=== PATIENT | male | born 1985 | race Caucasian/White ===

== ENCOUNTER → 2017-08-02 | Outpatient (CLI) | payer OTHER | LOC: FCPNEURO 21:00 | PROVIDERS: ATTEND Psychiatry & Neurology Sleep Medicine | DX: G47.33 Obstructive sleep apnea (adult) (pediatric) (principal); G47.31 Primary central sleep apnea ==

== ENCOUNTER 2019-03-24 22:03 | Emergency (ER) | payer OTHER ==
--- NOTE | 2019-03-24 22:22 | EDPHY ---
H & P Stated Complaint: syncope, + edibles prior Time Seen by Provider: 03/24/19 22:10 HPI/ROS: Chief Complaint: Near-syncope HPI: 34-year-old male had a near syncopal episode while attending at play this evening. Patient states that he became very lightheaded and slumped back. He did not completely lose consciousness. Does not have a history of similar episodes in the past. She has no chest pain or palpitations. No heart racing. No leg pain. No shortness of breath. Does not have a family history of sudden cardiac or coronary artery disease. Patient does admit to using some cannabis edibles earlier in the evening and thinks he may have taken a larger dose than he had intended. Currently is feeling mildly lightheaded. ROS: 10 systems were reviewed and were negative except those elements noted in the HPI. PMH: Denies Social History: No smoking, occasional alcohol, occasional cannabis Family History: No family history of coronary artery disease or sudden cardiac Physical Exam: Gen: Awake, Alert, mildly slowed response, appears under the influence of cannabis HEENT: Nose: no rhinorrhea Eyes: PERRLA, EOMI Mouth: Moist mucosa Neck: Supple, no JVD Chest: nontender, lungs clear to auscultation Heart: S1, S2 normal, no murmur Abd: Soft, non-tender, no guarding Back: no CVA tenderness, no midline tenderness Ext: no edema, non-tender Skin: no rash Neuro: CN II-XII intact, Sensation grossly intact, Strength 5/5 in bilateral upper and lower extremities - Personal History Current Tetanus Diphtheria and Acellular Pertussis (TDAP): Unsure - Medical/Surgical History Other PMH: sleep apnea w cpap, eye surgery, laser eye surgery, malaria - Social History Smoking Status: Never smoked Constitutional: Initial Vital Signs Temperature (C) 36.9 C 03/24/19 22:09 Heart Rate 60 03/24/19 22:09 Respiratory Rate 20 03/24/19 22:09 Blood Pressure 115/59 L 03/24/19 22:09 O2 Sat (%) 100 03/24/19 22:09 O2 Delivery Mode Nasal Cannula O2 (L/minute) 2 Allergies/Adverse Reactions: cats Allergy (Uncoded 03/24/19 22:07) Home Medications: Medication Instructions Recorded Rhinocort Allergy 03/24/19 ZYRTEC 03/24/19 Medical Decision Making - Diagnostics EKG Interpretation: ECG time 10:28 p.m., sinus rhythm with a rate of 56, normal axis, normal intervals, no acute ST or T-wave changes. There is an early repolarization pattern. Impression: Normal ECG. ED Course/Re-evaluation: 34-year-old male with a near syncopal episode after ingesting edible cannabis. ECG is normal. Laboratory evaluations are unremarkable. He has no risk factors for sudden cardiac . He has a normal exam. Will discharge with follow-up with as an outpatient. Patient has been cautioned regarding cannabis usage. - Data Points Laboratory Results: Laboratory Results 03/24/19 22:15 03/24/19 22:15 03/24/19 03/24/19 03/24/19 22:18 22:15 22:15 WBC 9.25 10^3/uL 10^3/uL (3.80-9.50) RBC 4.66 10^6/uL 10^6/uL (4.40-6.38) Hgb 14.6 g/dL g/dL (13.7-17.5) Hct 44.5 % % (40.0-51.0) MCV 95.5 fL fL (81.5-99.8) MCH 31.3 pg pg (27.9-34.1) MCHC 32.8 g/dL g/dL (32.4-36.7) RDW 12.4 % % (11.5-15.2) Plt Count 416 10^3/uL H 10^3/uL (150-400) MPV 10.2 fL fL (8.7-11.7) Neut % (Auto) 43.2 % % (39.3-74.2) Lymph % (Auto) 44.6 % % (15.0-45.0) [place] % (Auto) 9.9 % % (4.5-13.0) Eos % (Auto) 1.6 % % (0.6-7.6) Baso % (Auto) 0.5 % % (0.3-1.7) Nucleat RBC Rel Count 0.0 % % (0.0-0.2) Absolute Neuts (auto) 3.98 10^3/uL 10^3/uL (1.70-6.50) Absolute Lymphs (auto) 4.13 10^3/uL H 10^3/uL (1.00-3.00) Absolute Monos (auto) 0.92 10^3/uL H 10^3/uL (0.30-0.80) Absolute Eos (auto) 0.15 10^3/uL 10^3/uL (0.03-0.40) Absolute Basos (auto) 0.05 10^3/uL 10^3/uL (0.02-0.10) Absolute Nucleated RBC 0.00 10^3/uL 10^3/uL (0-0.01) Immature Gran % 0.2 % % (0.0-1.1) Immature Gran # 0.02 10^3/uL 10^3/uL (0.00-0.10) Sodium 137 mEq/L mEq/L (135-145) Potassium 3.8 mEq/L mEq/L (3.5-5.2) Chloride 102 mEq/L mEq/L (97-110) Carbon Dioxide 21 mEq/l L mEq/l (22-31) Anion Gap 14 mEq/L mEq/L (6-14) BUN 24 mg/dL H mg/dL (7-23) Creatinine 1.2 mg/dL mg/dL (0.7-1.3) Estimated GFR > 60 Glucose 152 mg/dL H mg/dL (70-100) Calcium 9.8 mg/dL mg/dL (8.5-10.4) POC Troponin I 0.01 ng/mL ng/mL (0.00-0.08) Point of Care Test Results: Chemistry 03/24/19 22:18 POC Troponin I 0.01 ng/mL ng/mL (0.00-0.08) Departure - Departure Disposition: Home, Routine, Self-Care Clinical Impression: Near syncope Condition: Good Instructions: Near Syncope (ED) Additional Instructions: Be cautious when using cannabinoids. Follow up with primary care physician in 2-3 days for further evaluation. Return to the emergency department for chest pain, shortness of breath, fainting , or any other concerns. Referrals: Radha Blum MD [[facility] [place] Primary Care Provider] - As per Instructions
[2019-03-24 22:30] LABS: PLATELET COUNT 416 10^3/uL (150-400)
[2019-03-24 23:52] VITALS: BP 125/78
--- NOTE | 2019-03-25 05:35 | CPEKG ---
Test Reason : OPEN Blood Pressure : / mmHG Vent. Rate : 056 BPM Atrial Rate : 056 BPM P-R Int : 149 ms QRS Dur : 088 ms QT Int : 427 ms P-R-T Axes : 006 043 036 degrees QTc Int : [address] elev, probable normal early repol pattern Confirmed by Felton Joel ([id number] on 03/25/2019 5:34:43 AM Referred By: Felton Joel Confirmed By:Felton Joel
== END 2019-03-24 23:51 | disposition home or self-care (01) ==
LOC: EDUNIT#
DX: R55 Syncope and collapse (principal)
CPT/HCPCS: 84484-ER